=== PATIENT | male | born 1945 | race Caucasian/White ===

== ENCOUNTER → 2020-10-21 08:42 | Outpatient (CLI) | payer MEDICARE, OTHER, SELFPAY ==
[2020-10-21 11:17] LABS: COVID19 -Nasal RAPID Negative (Negative)
== END ==
PROVIDERS: Visit Provider Specialist
DX: Z01.812 Encounter for preprocedural laboratory examination (principal); Z20.822 Contact with and (suspected) exposure to COVID-19
CPT/HCPCS: 87635; C9803

== ENCOUNTER 2020-10-22 07:55 | Day surgery (SDC) | payer MEDICARE, OTHER, SELFPAY ==
--- NOTE | 2020-10-22 | PATH_ITS ---
[facility] Accession Number: [id number] . 01 Material submitted: . cecum - CECUM POLYP . 02 Diagnosis: Cecum, Polyp, Biopsy: Tubular adenoma. MRV 10/26/2020 1215 Local . 02 Electronically signed: . Zenaida Clark MD, Pathologist NPI- [id number] . 01 Gross description: . CECUM POLYP: Received in formalin are 2 fragment(s) of patel, soft tissue measuring 0.3 x 0.3 x 0.2 cm to 0.2 x 0.1 x 0.1 cm submitted entirely in 1 cassette(s) /RUDDY 10/23/2020 0453 Local . 02 Pathologist provided ICD-10: D12.0 . 02 CPT . 306310 Performed at: 01 [facility] [address] [id number] MD Alfie Ring MD Phone: [phone] Performed at: 02 [facility] [address] [place], [place] [id number] MD Zenaida Clark MD Phone: [phone]
[2020-10-22 08:11] VITALS: BP 132/81; PULSE 84; RESP 16; TEMP 36.2; O2SAT 100; BMI 31.0
[2020-10-22] MEDS: LACTATED RINGERS 1,000 ML 84 ML IV (08:31)
--- NOTE | 2020-10-22 09:54 | PM.HP.1 ---
History of Present Illness History of Present Illness Chief complaint: SCREENING COLONOSCOPY Narrative: Patient is a gentleman here for screening colonoscopy. His last exam was about 5 or 6 years ago. He had polyps removed at that time. Patient History Medical History (Updated 10/22/20 @ 09:57 by Aldo Vera MD) Diabetes mellitus Elevated cholesterol Essential hypertension with goal blood pressure less than 130/85 Gastroesophageal reflux disease Family & Social History Social History: household members spouse Tobacco & Substance use: Smoking Status Never smoker alcohol intake current alcohol intake frequency holiday/special occasion Substance Use Type does not use Meds Home Medications and Allergies Home Medications Medication Instructions Recorded Confirmed Type amlodipine 5 mg tablet 5 mg PO DAILY 10/22/20 10/22/20 History aspirin 81 mg tablet,delayed 81 mg PO DAILY 10/22/20 10/22/20 History release doxazosin 4 mg tablet 4 mg PO DAILY 10/22/20 10/22/20 History hydrochlorothiazide 25 mg tablet 25 mg PO DAILY 10/22/20 10/22/20 History lisinopril 40 mg tablet 40 mg PO DAILY 10/22/20 10/22/20 History metformin 500 mg tablet,extended 500 mg PO BID 10/22/20 10/22/20 History release 24 hr omeprazole 20 mg capsule,delayed 20 mg PO DAILY 10/22/20 10/22/20 History release pravastatin 40 mg tablet 40 mg PO DAILY 10/22/20 10/22/20 History Allergies Allergy/AdvReac Type Severity Reaction Status Date / Time No Known Drug Allergies Allergy Verified 10/22/20 08:06 Review of Systems Review of Systems Narrative: Patient has no history of chest pain or heart procedures. No breathing issues. No cough cold asthma. No black or bloody bowel movements. No seizures or blackouts. Exam Vital Signs (past 8 hours): - 10/22/20 08:11 Temperature 97.1 F L Pulse Rate 84 Respiratory Rate 16 Blood Pressure 132/81 Pulse Oximetry 100 Oxygen Delivery Method Room Air Oxygen Flow Rate 0 Narrative Exam Narrative: Pleasant cooperative patient no apparent distress. Lungs are clear to auscultation. No rales or rhonchi. Heart regular rate and rhythm no murmur gallop. Abdomen is soft nontender without mass. No obvious hernias. Patient is alert and oriented x3. Assessment & Plan Assessment & Plan narrative: Patient for screening exam. I have discussed the procedure and the rationale with the patient including risks of bleeding, perforation which would necessitate a major operation, failure to find remove all lesions and the potential to tattoo. They appeared to understand and wished to proceed. Time Spent With Patient Critical Care time: I spent a total of [] minutes of critical care time on this patient's care today; this time is exclusive of procedural time.
--- NOTE | 2020-10-22 09:59 | PM.PREOP ---
Pre-operative Note COVID-19 COVID-19 status: Negative Result date/Date tested (Pos, Neg/Pending): 10/21/20 Interval Note History & Physical reviewed/Exam performed by Physician: Yes Changes to H&P: No ASA Class (for procedural sedation): II
--- NOTE | 2020-10-22 10:38 | PM.OP.ENDO ---
Operative Date/Time/Diagnoses Date of procedure: 10/21/20 Time of procedure: 10:39 Pre-op diagnosis: Screening for colon cancer. Last exam fiber 6 years ago. He has a history of polyps. Post-op diagnosis: same (Single polyp in the cecum. Extensive sigmoid diverticulosis. Mild narrowing.) Procedure & Clinicians Study performed: Colonoscopy with cold biopsy. Same procedure as scheduled: Yes Indications: Screening in a increased risk group patient. Surgeon: Aldo Vera Procedure Notes SCOAP/Timeout: Performed Procedure in detail: The patient was placed in the left lateral decubitus position and underwent IV sedation directed by the surgeon consisting of fentanyl and Versed. Digital exam was unremarkable. Prostate is mildly enlarged. I did not feel any masses in it. The scope was inserted and advanced through the rectum into the sigmoid, descending, transverse, and ascending colon. Patient had extensive sigmoid diverticulosis with mild narrowing through the sigmoid. The cecum was reached identified by the ileocecal valve and the appendiceal opening. There was a small polyp in the cecum which I removed with biopsy forceps. TheScope was gradually brought out. No other Polyps were found. The scope ultimately was retroflexed in the rectum. The appearance was normal. The scope was removed and the patient tolerated the procedure well. The prep was very good. Scope withdrawal time: Just over 7 minutes Sedation minutes: 21 Findings: diverticulosis and other findings (Small cecal polyp) Specimen(s): other (Polyp) Complications: none Post-procedure Recommendations: Colonscopy in 5 years Follow up: as needed Disposition: PACU
[2020-10-22] MEDS: MIDAZOLAM 5 MG/5 ML VIAL IV (10:39)
[2020-10-22] MEDS: fentaNYL 250 MCG/5 ML INJ IV (10:40)
[2020-10-22 10:42] VITALS: BP 109/67; PULSE 63; RESP 17; TEMP 36.2; O2SAT 94
[2020-10-22 10:46] VITALS: BP 104/58; PULSE 63; RESP 17; TEMP 36.1; O2SAT 92
[2020-10-22 10:51] VITALS: BP 106/60; PULSE 66; RESP 14; TEMP 36.6; O2SAT 95
[2020-10-22 10:57] VITALS: BP 107/61; PULSE 56; RESP 13; TEMP 36.2; O2SAT 95
[2020-10-22 11:25] VITALS: BP 107/60; PULSE 62; RESP 16; TEMP 36.6; O2SAT 99
== END 2020-10-22 11:32 | disposition home or self-care (01) ==
PROVIDERS: PCP Internal Medicine; Referring Provider Specialist; Visit Provider Specialist
PROC: 0DJD8ZZ Inspection of Lower Intestinal Tract, Via Natural or Artificial Opening Endoscopic (ICD-10-PCS; CPT 45378; principal; 2020-10-22 09:15)
DX: Z12.11 Encounter for screening for malignant neoplasm of colon (principal); Z86.010 Personal history of colon polyps; I10 Essential (primary) hypertension; K21.9 Gastro-esophageal reflux disease without esophagitis; E78.00 Pure hypercholesterolemia, unspecified; E11.9 Type 2 diabetes mellitus without complications; Z79.84 Long term (current) use of oral hypoglycemic drugs; K57.30 Diverticulosis of large intestine without perforation or abscess without bleeding; D12.0 Benign neoplasm of cecum
CPT/HCPCS: 45380; 99152; J2250; J3010

== ENCOUNTER → 2020-12-28 08:35 | Outpatient (CLI) | payer MEDICARE, OTHER, SELFPAY ==
--- NOTE | 2020-12-28 | DI.RAD.S_ITS ---
PROCEDURE: FL UPPER GI W AIR INDICATIONS: Abnormal weight loss COMPARISON: None. FINDINGS: KUB: Preprocedural bone puller film demonstrates a normal bowel gas pattern. No suspicious abdominal calcifications. Visualized solid organ contours appear normal. Bony structures appear unremarkable. Esophagus: Esophageal mucosa is normal on air-contrast views. On single-contrast views, there is normal esophageal peristalsis. No strictures, extrinsic mass effects, or diverticula. No hiatal hernia or elicited gastroesophageal reflux. There is normal transit of a calibrated barium tablet through the esophagus. Stomach: The stomach is normally distensible, with normal rugal fold thickness. No mucosal masses or ulcers. Pylorus and duodenal bulb appear normal in morphology. Duodenal folds are normal in thickness as well. Incidentally noted is very rapid transit through much of the small bowel. Only a few minutes after ingestion, the orally administered contrast had progressed through approximately 50 percent of the small bowel. IMPRESSION: Abnormally rapid transit of contrast material through the small bowel. Otherwise normal study. Dictated by: Lico Cook M.D. on 12/28/2020 at 11:06 Approved by: Lico Cook M.D. on 12/28/2020 at 11:07
== END ==
PROVIDERS: PCP Internal Medicine; Referring Provider Internal Medicine; Visit Provider Internal Medicine
DX: R63.4 Abnormal weight loss (principal)
CPT/HCPCS: 74246

== ENCOUNTER → 2021-04-12 11:20 | Outpatient (CLI) | payer MEDICARE, OTHER, SELFPAY ==
[2021-04-12 13:44] LABS: COVID19 -Nasal RAPID Negative (Negative)
== END ==
PROVIDERS: PCP Internal Medicine; Visit Provider Family Medicine Sleep Medicine
DX: Z20.822 Contact with and (suspected) exposure to COVID-19 (principal)
CPT/HCPCS: 87635; C9803

== ENCOUNTER 2021-04-13 08:08 | Day surgery (SDC) | payer MEDICARE, OTHER, SELFPAY ==
[2021-04-13] VITALS (7 sets, daily range): BP systolic 83–138; BP diastolic 50–77; PULSE 67–91; RESP 12–18; TEMP 36.2–36.4; O2SAT 91–99; BMI 30.2
--- NOTE | 2021-04-13 | PATH_ITS ---
[facility] Accession Number: [id number] . 01 Material submitted: . PART A: small bowel - SMALL BOWEL PART B: stomach - STOMACH PART C: esophagus - ESOPHAGEAL . 01 Diagnosis: A. Small Bowel, Biopsies: Duodenal mucosa with no diagnostic abnormality. Negative for active inflammation, features of sprue, dysplasia, or malignancy. . B. Stomach, Biopsies: Gastric body mucosa with mild chronic inflammation and PPI-like effect. Negative for Helicobacter organisms by immunohistochemistry. Negative for intestinal metaplasia. Negative for dysplasia or malignancy. . C. Esophagus, Biopsy: Squamous epithelium with no diagnostic abnormality. Intraepithelial eosinophils are not increased. Negative for dysplasia and malignancy [facility] 04/18/2021 1633 Local . 01 Electronically signed: . Librado Katz MD, PhD, Pathologist NPI- [id number] . 01 Gross description: . Part A: SMALL BOWEL: Received in formalin are 2 fragment(s) of patel, soft tissue measuring 0.2 x 0.2 x 0.1 cm to 0.2 x 0.2 x 0.1 cm submitted entirely in 1 cassette(s) Part B: STOMACH: Received in formalin are multiple fragment(s) of patel, soft tissue measuring 1.2 x 0.2 x 0.1 cm in aggregate submitted entirely in 1 cassette(s) Part C: ESOPHAGEAL: Received in formalin are 3 fragment(s) of patel, soft tissue measuring 0.5 x 0.1 x 0.1 cm to 0.2 x 0.2 x 0.2 cm submitted entirely in 1 cassette(s) /CPE 04/14/2021 1412 Local . 01 Microscopic: . B. An immunohistochemical stain was performed to evaluate for Helicobacter organisms and is negative. The control stain showed appropriate reactivity. . * This test was developed and its performance characteristics determined by [facility]. It has not been cleared or approved by the U.S. Food and Drug Administration. The FDA has determined that such clearance or approval is not necessary. This test is used for clinical purposes. It should not be regarded as investigational or for research. . 01 Pathologist provided ICD-10: R10.13, K29.70 . 01 CPT . 134797, 582907, 171541, F65600 Specimen Comment: A courtesy copy of this report has been sent to [phone] Performed at: 01 [facility] [address] [place] [address], [place], [place] [id number] MD Alfie Ring MD Phone: [phone]
--- NOTE | 2021-04-13 09:46 | PM.HP.1 ---
History of Present Illness History of Present Illness Date Patient Seen: 04/13/21 Chief complaint: EGD W/POSS BX Narrative: Weight loss and loss of appetite Patient History Medical History (Updated 10/22/20 @ 09:57 by Aldo Vera MD) Diabetes mellitus Elevated cholesterol Essential hypertension with goal blood pressure less than 130/85 Gastroesophageal reflux disease Family & Social History Social History: household members spouse Tobacco & Substance use: Smoking Status Never smoker alcohol intake current alcohol intake frequency holiday/special occasion Substance Use Type does not use Meds Home Medications and Allergies Home Medications Medication Instructions Recorded Confirmed Type amlodipine 5 mg tablet 5 mg PO DAILY 10/22/20 04/13/21 History aspirin 81 mg tablet,delayed 81 mg PO DAILY 10/22/20 04/13/21 History release doxazosin 4 mg tablet 4 mg PO DAILY 10/22/20 04/13/21 History hydrochlorothiazide 25 mg tablet 25 mg PO DAILY 10/22/20 04/13/21 History lisinopril 40 mg tablet 40 mg PO DAILY 10/22/20 04/13/21 History metformin 500 mg tablet,extended 500 mg PO BID 10/22/20 04/13/21 History release 24 hr pravastatin 40 mg tablet 40 mg PO DAILY 10/22/20 04/13/21 History pantoprazole 20 mg tablet,delayed 20 mg PO BID 04/12/21 04/13/21 History release Allergies Allergy/AdvReac Type Severity Reaction Status Date / Time No Known Drug Allergies Allergy Verified 10/22/20 08:06 Exam Vital Signs (past 8 hours): - 04/13/21 08:30 Temperature 97.1 F L Pulse Rate 91 H Respiratory Rate 18 Blood Pressure 138/77 Pulse Oximetry 99 Oxygen Delivery Method Room Air Narrative Exam Narrative: Oropharynx free of lesions Chest clear to auscultation percussion Cardiac exam reveals no S3 or murmur Assessment & Plan Assessment & Plan narrative: Nausea weight loss and loss of appetite rule out peptic disease rule out GERD. Symptoms will likely progressive procedure is not done soon. Risks benefits and alternatives have been explained. Time Spent With Patient Critical Care time: I spent a total of [] minutes of critical care time on this patient's care today; this time is exclusive of procedural time.
--- NOTE | 2021-04-13 09:47 | PM.DS.1 ---
History of Present Illness History of Present Illness Chief complaint: EGD W/POSS BX Narrative: Weight loss and loss of appetite Discharge Providers Provider Discharge Date: 04/13/21 Primary care physician: Sadie Bermeo MD Consults: 04/13/21 08:39 Consult to Respiratory Therapy Evaluate & Treat Comment: Physician Instructions: Evaluate and treat Discharge provider: Rosaura Neff MD Exam Vital Signs (past 8 hours): - 04/13/21 08:30 Temperature 97.1 F L Pulse Rate 91 H Respiratory Rate 18 Blood Pressure 138/77 Pulse Oximetry 99 Oxygen Delivery Method Room Air [facility] Medical History (Updated 10/22/20 @ 09:57 by Aldo Vera MD) Diabetes mellitus Elevated cholesterol Essential hypertension with goal blood pressure less than 130/85 Gastroesophageal reflux disease Social History household members: spouse Smoking Status: Never smoker alcohol intake: current Discharge Plan Discharge orders & Medications Prescriptions: No Action pravastatin 40 mg tablet 40 mg PO DAILY 0RF amlodipine 5 mg tablet 5 mg PO DAILY 0RF aspirin 81 mg tablet,delayed release (DR/EC) 81 mg PO DAILY 0RF doxazosin 4 mg tablet 4 mg PO DAILY 0RF hydrochlorothiazide 25 mg tablet 25 mg PO DAILY 0RF lisinopril 40 mg tablet 40 mg PO DAILY 0RF metformin 500 mg tablet extended release 24 hr 500 mg PO BID 0RF pantoprazole 20 mg Tablet,Delayed Release (Dr/Ec) 20 mg PO BID 0RF Follow up/Referrals: Sadie Bermeo MD [Primary Care Provider] - Discharge Data Primary Care Provider: Sadie Bermeo Attending Provider: Rosaura Neff
--- NOTE | 2021-04-13 09:47 | PM.OP.EGD ---
Operative Date/Time/Diagnoses Date of procedure: 04/13/21 Procedure & Clinicians Study performed: EGD Indications: Nausea of weight loss and loss of appetite Procedure Notes Procedure in detail: After informed consent was obtained the patient was placed in left lateral decubitus position. The video upper scope was placed into the oropharynx with the patient's help swelled into the esophagus. The esophagus stomach and duodenum were carefully examined. On withdrawal retroflexed view the GE junction was performed. The scope was removed. The patient of the procedure well. Blood loss none Complications none Sedation mac Findings 1. Esophagus essentially normal but very subtle longitudinal furrows present biopsies taken to rule out eosinophilic esophagitis 2. Somewhat patchy gastric antral erythema but in addition there were a subtle increase in the size of the gastric folds. Biopsies taken 3. 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 Biopsies taken to rule out celiac Will be in touch with marked regarding his biopsies within the next week.
--- NOTE | 2021-04-13 10:37 | SUR.PHASEII ---
Discharge instructions reviewed with pt and he verbalized understanding. Pt tolerating fluids with no c/o nausea noted.
== END 2021-04-13 10:43 | disposition home or self-care (01) ==
PROVIDERS: PCP Internal Medicine; Referring Provider Internal Medicine Gastroenterology; Visit Provider Internal Medicine Gastroenterology
PROC: 0DJ08ZZ Inspection of Upper Intestinal Tract, Via Natural or Artificial Opening Endoscopic (ICD-10-PCS; CPT 43235; principal; 2021-04-13 10:00)
DX: K29.50 Unspecified chronic gastritis without bleeding (principal); R63.0 Anorexia; R63.4 Abnormal weight loss; K21.9 Gastro-esophageal reflux disease without esophagitis; E11.9 Type 2 diabetes mellitus without complications; I10 Essential (primary) hypertension; Z79.84 Long term (current) use of oral hypoglycemic drugs
CPT/HCPCS: 43239

== ENCOUNTER 2021-06-01 09:59 | Emergency (ER) | payer MEDICARE, OTHER, SELFPAY ==
[2021-06-01 10:22] VITALS: BP 127/66; PULSE 81; RESP 16; TEMP 36.1; O2SAT 97; BMI 29.5
--- NOTE | 2021-06-01 10:32 | ED_ITS ---
HPI - General Adult General Chief complaint: Diabetic Problem Stated complaint: stated diabetes attack/freq unrination/wt loss Time Seen by Provider: 06/01/21 10:15 Source: patient Mode of arrival: Ambulatory History of Present Illness HPI narrative: Patient is a 76-year-old male with history of hypertension, diabetes, hyperlipidemia, presenting today with polydipsia and polyuria. He says he has been taking metformin for while he was told by his primary that he did not need to check his glucose. However over last 3 days he realized that his symptoms may be related to his diabetes. He has no fever or chills. He has no abdominal pain nausea vomiting. He has no chest pain. He previously had some weight loss due to loss of appetite he had significant workup including upper GI series, CT, GI consultation he said nothing was found of it. He has had a little bit more weight loss over last few days due to his current symptoms. He otherwise is feeling well. He denies any painful urination. He checked his glucose at home this morning and realized it was 365. He called the nursing hotline who recommended he come to the ED for further evaluation. Related Data Home Medications Medication Instructions Recorded Confirmed amlodipine 5 mg tablet 5 mg PO DAILY 10/22/20 04/13/21 aspirin 81 mg tablet,delayed 81 mg PO DAILY 10/22/20 04/13/21 release doxazosin 4 mg tablet 4 mg PO DAILY 10/22/20 04/13/21 hydrochlorothiazide 25 mg tablet 25 mg PO DAILY 10/22/20 04/13/21 lisinopril 40 mg tablet 40 mg PO DAILY 10/22/20 04/13/21 metformin 500 mg tablet,extended 500 mg PO BID 10/22/20 04/13/21 release 24 hr pravastatin 40 mg tablet 40 mg PO DAILY 10/22/20 04/13/21 pantoprazole 20 mg tablet,delayed 20 mg PO BID 04/12/21 04/13/21 release Previous Rx's Medication Instructions Recorded metformin 1,000 mg tablet 1,000 mg PO BID #60 tab 06/01/21 Allergies Allergy/AdvReac Type Severity Reaction Status Date / Time No Known Drug Allergies Allergy Verified 10/22/20 08:06 Review of Systems Review of Systems Narrative: GENERAL: Denies chills, fatigue, malaise, fever, sweats, travel HEENT: Denies sinus pain, ear pain, sore throat, difficulty swallowing, neck pain RESPIRATORY: Denies dyspnea, cough, wheezing, hemoptysis, sputum. CARDIOVASCULAR: Denies chest pain, palpitations, orthopnea, edema GASTROINTESTINAL: Denies nausea, vomiting, abdominal pain, diarrhea, const ipation, melena. : Denies dysuria, frequency, incontinence, hematuria, urinary retention, flank pain. MUSCULOSKELETAL: Denies weakness, joint pain, or bony pain SKIN: No rash, no erythema, no pruritus NEUROLOGIC: Denies weakness, dizziness, headache, numbness, change in speech, confusion PSYCHIATRIC: No concerning psychosocial issues. 12 point review of systems is negative except for those stated above and HPI Endocrine Endocrine: Reports as per HPI, Reports polydipsia and Reports polyuria Patient History Medical History (Updated 06/01/21 @ 12:03 by Katie Corona DO) Diabetes mellitus Elevated cholesterol Essential hypertension with goal blood pressure less than 130/85 Gastroesophageal reflux disease Social History household members: spouse Smoking Status: Never smoker alcohol intake: current Smoking Status: Never smoker alcohol intake frequency: holidays/special occasions only Substance Use Type: does not use Exam Initial Vital Signs Initial Vital Signs: Vital Signs Temperature 96.9 F L 06/01/21 10:22 Pulse Rate 81 06/01/21 10:22 Respiratory Rate 16 06/01/21 10:22 Blood Pressure 127/66 06/01/21 10:22 Pulse Oximetry 97 06/01/21 10:22 GENERAL: Alert well-appearing 76-year-old male and in no acute distress. HEENT: Head atraumatic,EOMI, pupils reactive, face symmetric, moist mucous membranes CARDIOVASCULAR: Regular rate and rhythm without murmurs, rubs or gallops. RESPIRATORY: Breath sounds equal bilaterally, no wheezes rales or rhonchi. ABDOMEN: Soft, nontender. Normoactive bowel sounds all 4 quadrants. No guarding or rebound. EXTREMITIES: Normal range of motion, no clubbing or edema. Neurovascularly intact NEUROLOGICAL: Alert and oriented x4.Normal gait and speech. SKIN: Warm, dry, no laceration, no petechiae, no rashes or lesions. Course Orders Ordered: ED Orders 06/01/21 10:35 A1C [Hemoglobin A1C% w Est Avg Glu] Stat Complete Blood Count AUTO DIFF Stat Comprehensive Metabolic Panel Stat Lipase Stat Troponin & CK Cardiac Panel Stat 06/01/21 10:46 EKG-12 Lead Stat Discontinued Medications Sodium Chloride (Normal Saline 0.9%) 1,000 mls @ 1,000 mls/hr IV CONT JOJO Last Infusion: 06/01/21 12:23 Dose: 0 mls/hr Documented by: Admin: 06/01/21 11:14 Dose: 1,000 mls/hr Documented by: THERESA Vital Signs Vital signs: Vital Signs - 8 hr 06/01/21 11:15 06/01/21 11:30 06/01/21 12:00 Pulse Rate 73 71 66 Respiratory Rate 19 15 12 Blood Pressure 105/61 111/62 Pulse Oximetry 97 96 96 Medical Decision Making Lab Data Result diagrams: 06/01/21 10:35 06/01/21 10:35 Labs: Lab Results 06/01/21 06/01/21 06/01/21 Range/Units 10:35 10:35 10:35 WBC 8.9 (4.5-11.0) X10^3/uL RBC 4.82 (4.5-5.9) X10^6/uL Hgb 13.9 (13.5-17.5) g/dL Hct 38.8 L (41-53) % MCV 80.5 (80-100) fL MCH 28.8 (26-34) PG MCHC 35.8 (30-36) % RDW 13.5 (11.6-14.8) % Plt Count 210 (150-400) X10^3/uL Neut % (Auto) Not Reportable Lymph % (Auto) Not Reportable [place] % (Auto) Not Reportable Eos % (Auto) Not Reportable Baso % (Auto) Not Reportable Lymph # (Auto) Not Reportable [place] # (Auto) Not Reportable Baso # (Auto) Not Reportable Total Counted 100 Seg Neutrophils % 69.0 (38-70) % Band Neutrophils % 2.0 L (3-7) % Lymphocytes % (Manual) 23.0 L (25-45) % Monocytes % (Manual) 6.0 (2-11) % Neutrophils # (Manual) 6319 H (5022-8923) /uL RBC Morphology Normal morphology Sodium 130 L (137-145) mmol/L Potassium 4.4 (3.4-5.1) mmol/L Chloride 94 L (98-107) mmol/L Carbon Dioxide 24 (22-32) mmol/L BUN 26 H (9-20) mg/dL Creatinine 1.70 H (0.66-1.25) mg/dL Estimated GFR 42 L (>60) mL/min BUN/Creatinine Ratio 15.3 (6-22) Glucose 449 H (80-110) mg/dL Hemoglobin A1c 12.3 H (4.0-6.0) % Calcium 9.1 (8.4-10.2) mg/dL Total Bilirubin 0.9 (0.2-1.3) mg/dL AST 21 (17-59) IU/L ALT 22 (<50) IU/L Alkaline Phosphatase 111 (38-126) U/L Total Creatine Kinase 56 (55-170) U/L CK-MB (CK-2) TNP CK-MB (CK-2) Rel Index TNP Troponin I < 0.012 (0.01-0.034) ng/mL Total Protein 6.6 (6.3-8.2) g/dL Albumin 4.0 (3.5-5.0) g/dL Globulin 2.6 (1.7-4.1) g/dL Albumin/Globulin Ratio 1.5 (1.0-2.8) Lipase 62 (23-300) U/L Point of Care Testing Glucose POC 360 Urine Dip Bedside Urine Glucose 1000 mg/dl Bedside Urine Bilirubin - Negative Bedside Urine Ketone - Negative Urine Specific [place] 1.025 Bedside Urine Occult Blood - Negative Bedside Urine pH 6.0 Bedside Urine Protein - Negative Bedside Urine Urobilinogen - Negative Bedside Urine Nitrite - Negative Bedside Urine Leukocytes - Negative Esterase Point of care testing: Point of Care Testing Glucose POC 360 Urine Dip Bedside Urine Glucose 1000 mg/dl Bedside Urine Bilirubin - Negative Bedside Urine Ketone - Negative Urine Specific [place] 1.025 Bedside Urine Occult Blood - Negative Bedside Urine pH 6.0 Bedside Urine Protein - Negative Bedside Urine Urobilinogen - Negative Bedside Urine Nitrite - Negative Bedside Urine Leukocytes - Negative Esterase ECG Data Interpretation: Normal sinus rhythm rate 65 FL interval 164 QRS [address] changes or T- wave inversions, no priors MDM Narrative Medical decision making narrative: Patient's symptoms are consistent with diabetes. He does not have any evidence of DKA. Hemoglobin A1c confirms uncontrolled diabetes the level 12.3. He overall appears well. Recommend outpatient follow-up. Discharge Plan Departure Patient Disposition: Home Clinical Impression: Diabetes mellitus Instructions: DI for Diabetes Type 2 Activity Restrictions/Additional Instructions: *You have been diagnosed with diabetes *What to do: At this time please follow-up with your primary care provider. Her hemoglobin A1c today is 12.3 *Continue to take medications as directed Increase Glucophage to 1000 mg twice a day--> S[facility] *Follow up with your primary care provider in 2-3 days or call [phone] *Return to ER if you should have abdominal pain nausea vomiting fever chest pain or any new, worsening or concerning symptoms Prescriptions: New metformin 1,000 mg tablet 1,000 mg PO BID Qty: 60 0RF No Action pravastatin 40 mg tablet 40 mg PO DAILY 0RF amlodipine 5 mg tablet 5 mg PO DAILY 0RF aspirin 81 mg tablet,delayed release (DR/EC) 81 mg PO DAILY 0RF doxazosin 4 mg tablet 4 mg PO DAILY 0RF hydrochlorothiazide 25 mg tablet 25 mg PO DAILY 0RF lisinopril 40 mg tablet 40 mg PO DAILY 0RF metformin 500 mg tablet extended release 24 hr 500 mg PO BID 0RF pantoprazole 20 mg Tablet,Delayed Release (Dr/Ec) 20 mg PO BID 0RF Referrals: Sadie Bermeo MD [Primary Care Provider] -
[2021-06-01 11:02] LABS: Hematocrit 38.8 % (41-53); Hemoglobin 13.9 g/dL (13.5-17.5); Mean Corpuscular HGB Conc 35.8 % (30-36); Mean Corpuscular Hemoglobin 28.8 PG (26-34); Mean Corpuscular Volume 80.5 fL (80-100); Platelet Count 210 X10^3/uL (150-400); Red Blood Cell Count 4.82 X10^6/uL (4.5-5.9); Red Cell Distribution Width 13.5 % (11.6-14.8); White Blood Cell Count 8.9 X10^3/uL (4.5-11.0)
[2021-06-01 11:03] LABS: Alanine Aminotransferase 22 IU/L (<50); Albumin Globulin Ratio 1.5 (1.0-2.8); Alkaline Phosphatase 111 U/L (38-126); Aspartate Aminotransferase 21 IU/L (17-59); BUN Creatinine Ratio 15.3 (6-22); Bilirubin Total 0.9 mg/dL (0.2-1.3); Blood Urea Nitrogen 26 mg/dL (9-20); Calcium 9.1 mg/dL (8.4-10.2); Carbon Dioxide 24 mmol/L (22-32); Chloride 94 mmol/L (98-107); Creatine Kinase 56 U/L (55-170); Estimated Glomerular Filt Rate 42 mL/min (>60); Globulin 2.6 g/dL (1.7-4.1); Glucose 449 mg/dL (80-110); HEMOLYSIS < 15 (0-50); Lipase 62 U/L (23-300); Potassium 4.4 mmol/L (3.4-5.1); Sodium 130 mmol/L (137-145); Total Protein 6.6 g/dL (6.3-8.2)
[2021-06-01 11:06] LABS: Add Manual Diff / Slide Review YES
[2021-06-01 11:14] LABS: Troponin I < 0.012 ng/mL (0.01-0.034)
[2021-06-01] MEDS: SODIUM CHLORIDE 0.9% 1,000 ML 1000 ML IV (11:14)
[2021-06-01 11:15] VITALS: PULSE 73; RESP 19; O2SAT 97
[2021-06-01 11:30] VITALS: BP 105/61; PULSE 71; RESP 15; O2SAT 96
[2021-06-01 11:31] LABS: Neutrophils Absolute Manual 6319 /uL (3000-5900); Total Cells Counted 100
[2021-06-01 11:32] LABS: RBC Morphology Normal Morphology
[2021-06-01 11:36] LABS: Hemoglobin A1C% w Est Avg Glu 12.3 % (4.0-6.0)
[2021-06-01 12:00] VITALS: BP 111/62; PULSE 66; RESP 12; O2SAT 96
== END 2021-06-01 12:25 | disposition home or self-care (01) ==
PROVIDERS: Emergency Provider Emergency Medicine; PCP Internal Medicine
DX: E11.65 Type 2 diabetes mellitus with hyperglycemia (principal); I10 Essential (primary) hypertension; Z79.84 Long term (current) use of oral hypoglycemic drugs
CPT/HCPCS: 36415; 80053; 81003; 82550; 82962; 83036; 83690; 84484; 85007; 85025; 93005; 93010; 99284

== ENCOUNTER → 2023-06-05 10:14 | Outpatient (CLI) | payer MEDICARE, OTHER, SELFPAY ==
--- NOTE | 2023-06-05 10:16 | DI.MRI.S_ITS ---
PROCEDURE: MR LUMBAR SPINE WO CON INDICATIONS: Lumbago with sciatica, left side TECHNIQUE: Noncontrast sagittal T1 spin echo and T2 fast echo, sagittal STIR, and T2 fast spin echo through the lumbar spine. In cases with scoliosis, additional coronal T2 fast spin echo may be performed. COMPARISON: None. FINDINGS: Image quality: Excellent. Alignment and Curvature: Dextroscoliosis at the thoracolumbar junction, centered at L1-2. Mild retrolisthesis of L1 on L2, L2 on L3. Grade 1 anterolisthesis at L4-L5 and L5 on S1. Vertebral body heights are well maintained. Bone Marrow: Marrow is of normal overall signal. No acute vertebral body compression fractures. Spinal Cord: Conus medullaris terminates at the T12-L1 level. Visualized cord demonstrates normal signal and size. Paraspinous Soft Tissues: No paravertebral masses. T12-L1: Mild bilateral facet arthropathy. No stenosis. L1-2: Posterior disc uncovering. Mild bilateral facet arthropathy. Mild central canal stenosis. Mild right and left neural foraminal stenosis. L2-3: Posterior disc uncovering. Moderate bilateral facet arthropathy. Severe central canal stenosis. Mild right and left neural foraminal stenosis. L3-4: Disc bulge. Mild bilateral facet arthropathy. Mild central canal stenosis. Mild right and left neural foraminal stenosis. L4-5: Posterior disc uncovering. Severe right, moderate left facet arthropathy. Severe central canal stenosis. Moderate right neural foraminal stenosis. No left neural foraminal stenosis. Small amount of fluid between the posterior spinous processes of L4-5. L5-S1: Posterior disc uncovering. Moderate bilateral facet arthropathy. No central canal stenosis. No neural foraminal stenosis. Visualized sacrum is unremarkable. No abdominal aortic aneurysm. 2.4 cm left adrenal nodule, incompletely characterized. IMPRESSION: 1. 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 2. Additional severe central canal stenosis at L2-3. 3. 2.4 cm left adrenal nodule, incompletely characterized. Recommend further evaluation with CT abdomen. Dictated by: Alicia Singh M.D. on 06/05/2023 at 15:42 Approved by: Alicia Singh M.D. on 06/05/2023 at 15:51
== END ==
LOC: MRI 10:15
PROVIDERS: PCP Internal Medicine; Referring Provider Family Medicine; Visit Provider Family Medicine
DX: M51.16 Intervertebral disc disorders with radiculopathy, lumbar region (principal); M48.061 Spinal stenosis, lumbar region without neurogenic claudication; E27.9 Disorder of adrenal gland, unspecified
CPT/HCPCS: 72148

== ENCOUNTER → 2024-03-31 16:48 | Outpatient (CLI) | payer MEDICARE, OTHER, SELFPAY ==
--- NOTE | 2024-03-31 16:49 | DI.RAD.S_ITS ---
PROCEDURE: XR CHEST 2V INDICATIONS: Dyspnea on exertion, evaluate for pulmonary disease TECHNIQUE: 2 views of the chest were acquired. COMPARISON: None. FINDINGS: Surgical changes and devices: None. Lungs and pleura: Lungs are clear. No pleural effusions or pneumothorax. Mediastinum: Mediastinal contours are normal. Heart size is normal. Bones and chest wall: No suspicious bony abnormalities. Soft tissues appear unremarkable. Atherosclerotic vascular calcifications are noted. IMPRESSION: No acute cardiopulmonary abnormality is seen. Dictated by: Ian Middleton M.D. on 03/31/2024 at 22:58 Approved by: Ian Middleton M.D. on 03/31/2024 at 22:59
== END ==
PROVIDERS: PCP Family Medicine; Referring Provider Internal Medicine Critical Care Medicine; Visit Provider Internal Medicine Critical Care Medicine
DX: R06.09 Other forms of dyspnea (principal)
CPT/HCPCS: 71046; 99214

== ENCOUNTER → 2024-04-08 11:26 | Outpatient (CLI) | payer MEDICARE, OTHER, SELFPAY | LOC: RESP 11:27 | PROVIDERS: PCP Family Medicine; Referring Provider Internal Medicine Critical Care Medicine; Visit Provider Internal Medicine Critical Care Medicine | DX: R06.09 Other forms of dyspnea (principal); Z87.891 Personal history of nicotine dependence; R94.2 Abnormal results of pulmonary function studies; J84.9 Interstitial pulmonary disease, unspecified; J98.4 Other disorders of lung | CPT/HCPCS: 94060; 94618; 94726; 94729 ==

== ENCOUNTER → 2024-06-11 08:09 | Outpatient (CLI) | payer MEDICARE, OTHER, SELFPAY ==
--- NOTE | 2024-06-11 22:35 | DI.NM.S_ITS ---
DATE OF SERVICE: 06/11/2024 EXERCISE TREADMILL STRESS TEST PROCEDURE: Exercise treadmill stress test without imaging. ORDERING PROVIDER: Jalen Carroll M.D. INDICATIONS: The patient is a 79-year-old male with exertional dyspnea. FINDINGS: 1. The patient exercised for 2 minutes 40 seconds on a standard Wilfred protocol, achieving 4.6 METS, but the test was terminated early because of development of a rate-related left bundle-branch block that precluded ST-segment analysis. 2. He had a normal heart rate and blood pressure response to exercise although with a fairly accelerated heart rate response with a resting heart rate of 90 bpm, increasing to 135 bpm, (95% of his predicted maximum) despite the limited exercise time. 3. He had no chest discomfort or other anginal symptoms. 4. His resting ECG shows sinus rhythm with normal ST segments. With exercise, he develops occasional PVCs without complex ectopy but no ST- segment shifts until he develops a left bundle-branch block at 120 bpm, precluding further ST-segment analysis. The LBBB resolves in recovery at [address] segments. IMPRESSION: 1. Nondiagnostic exercise treadmill stress test because of development of a rate-related LBBB that precludes ST-segment analysis but no evidence of ischemia in recovery after resolution of the LBBB. 2. No angina or arrhythmias with stress except occasional isolated PVCs. This was a non-maximal study. 3. If there is a high degree of clinical suspicion for ischemic heart disease, consider a pharmacologic myocardial perfusion study. Cameron Burger - RS/jensen/AY doc#: [id number]/job#: [id number] dd: 06/11/2024 17:56:00 dt: 06/11/2024 21:41:00 DICTATING MD/COPIES TO: Roney Urbina MD; Jalen Carroll M.D. COPIES MNE: LUIS MIGUEL;
== END ==
PROVIDERS: PCP Family Medicine; Referring Provider Family Medicine; Visit Provider Family Medicine
DX: R06.09 Other forms of dyspnea (principal)
CPT/HCPCS: 93017